=== PATIENT | female | born 1970 | race Caucasian/White ===

== ENCOUNTER 2022-02-21 08:57 | Outpatient (CLI) | payer OTHER, SELFPAY ==
--- OUTSIDE RECORDS SUMMARY | 2022-02-21 08:59 | XMS_ITS | Clinical Summary ---
:1970 Author Organization [place] Address [address] [place] [address]. [place] [address] Care Team Providers Name Role Phone Mae Joseph MD Primary Care Provider [phone] Social History Tobacco Use Types Packs/Day Years Used Date Smoking Tobacco: Never Assessed Sex Assigned at Date Recorded Not on file Plan of Treatment Health Maintenance Due Date Last Done Comments ADVANCE CARE PLANNING 1970 ANNUAL REVIEW OF HM ORDERS 1970 CT COLONOGRAPHY 1970 FIT-DNA (Cologuard) 1970 FIT 1970 FLEX SIG 1970 HEPATITIS B IMMUNIZATION (1 1970 of 3 - 3-dose series) YEARLY PREVENTIVE VISIT 1970 COLONOSCOPY 1980 COLORECTAL CANCER SCREENING 1980 HIV SCREENING 1985 HEPATITIS C SCREENING 1988 PAP 11/28/1991 LIPID 11/28/2015 ZOSTER IMMUNIZATION (1 of 2020 2) COVID-19 Vaccine (3 - 04/27/2021 03/02/2021, 02/02/2021 Booster for Pfizer series) PHQ-2 (once per calendar 05/08/2021 year) INFLUENZA VACCINE (#1) 2022 02/17/2020, 02/13/2019, 02/14/2018, Additional history exists MAMMO SCREENING 03/30/2022 03/30/2021, 02/28/2020, 01/28/2019, Additional history exists DTAP/TDAP/TD IMMUNIZATION 08/31/2023 08/30/2013, 12/10/1999 (2 - Td or Tdap) IPV IMMUNIZATION Aged Out No longer eligi ble based on patient 's age to complete this topic MENINGITIS IMMUNIZATION Aged Out No longe r eligible based on patient 's age to complete this topic Pneumococcal Vaccine: Aged Out No longer eligible Pediatrics (0 to 5 Years) based on patient's age and At-Risk Patients (6 to to co mplete this topic 64 Years) Insurance Payer Benefit Plan / Subscriber ID Effective Phone Address T ype Group Dates PREFERREDONE PREFERREDONE HMO [id number] 2016-Pre [phone] [address] [address] PPO sent [address] [place] [address] Guarantor Name Account Type Relation to Date of Phone Billing Patient Address Gentry Jackson Personal/Family Self 1970 [phone] (Home) [place] [phone] (Work) Care Teams Deck Molder Relationship Specialty Start Date End Date Mae Joseph MD PCP - General apprentice machinist outside 02/26/20 [facility] [address] [place] [address] [place] [phone]
--- OUTSIDE RECORDS SUMMARY | 2022-02-21 08:59 | XMS_ITS | Encounter Summary ---
:1970 Author Organization [place] Address [address] [place] [address]. [place] [address] Care Team Providers Name Role Phone Mae Joseph MD Primary Care Provider Encounter Details Date Type Department Care Team Description 02/28/2020 Travel Social History Tobacco Use Types Packs/Day Years Used Date Smoking Tobacco: Never Assessed Sex Assigned at Date Recorded Not on file COVID-19 Exposure Response Date Recorded In the last month, have you been in contact with No / Unsure 02/28/2020 8:52 AM CDT someone who was confirmed or suspected to have Coronavirus / COVID-19? documented as of this encounter Plan of Treatment Not on filedocumented as of this encounter Visit Diagnoses Not on filedocumented in this encounter Care Teams Ceramics Test Engineer Relationship Specialty Start Date End Date Mae Joseph MD PCP - General granite countertop installer 02/26/20 [facility] [address] [facility] [address] [place] [phone] documented as of this encounter
--- OUTSIDE RECORDS SUMMARY | 2022-02-21 08:59 | XMS_ITS | Encounter Summary ---
:1970 Author Organization [place] Address [address] [place] [address] Care Team Providers Name Role Phone Jenniffer Cannon Primary Care Provider Reason for Referral Diagnostic Imaging Mammo (Routine) - Closed Specialty Diagnoses / Procedures Referred By Contact Refer red To Contact Radiology. Diagnoses Visit for screening mammogram [facility] Procedures MA Screen Bilateral w/Papito [facility] [address] [place] [address] [place] [phone] Fax: Referral ID Status Reason Start Date Expiration Date Visits Requ ested Visits Authorized [id number] Closed 01/16/2019 01/16/2020 1 1 Reason for Visit Diagnostic Imaging Mammo (Routine) - Closed Specialty Diagnoses / Procedures Referred By Contact Refer red To Contact Radiology. Diagnoses Visit for screening mammogram [facility] Procedures MA Screen Bilateral w/Papito [facility] [address] [place] [address] [place] [phone] Fax: Referral ID Status Reason Start Date Expiration Date Visits Requ ested Visits Authorized [id number] Closed 01/16/2019 01/16/2020 1 1 Encounter Details Date Type Department Care Team Description 01/28/2019 Hospital Encounter [facility] Carlos Joseph for screening [facility] Mae Kern MD mammogram Center [facility] [address] [facility], [address] [place] [address] [place] [phone] Social History Tobacco Use Types Packs/Day Years Used Date Smoking Tobacco: Never Assessed Sex Assigned at Date Recorded Not on file documented as of this encounter Plan of Treatment Not on filedocumented as of this encounter Procedures Procedure Name Priority Date/Time Associated Diagnosis Comme nts MA SCREENING Routine 01/28/2019 12:53 PM Visit for screening R esults for this BILATERAL W/ PAPITO CDT mammogram procedure are in the results section. documented in this encounter Results MA Screen Bilateral w/Papito (01/28/2019 12:53 PM CDT) Anatomical Region Laterality Modality Breast Bilateral Mammography Specimen (Source) Anatomical Location Collection Method / Collectio n Time Received Time / Laterality Volume Impressions 01/28/2019 1:07 PM CDT IMPRESSION: BI-RADS CATEGORY: 1 - ??Negative. RECOMMENDED FOLLOW-UP: Annual Mammograph yGita DUNCAN MD Narrative 01/28/2019 1:07 PM CDT SCREENING MAMMOGRAM, BILATERAL, DIGITAL w/CAD and TOMOSYNTHESIS, 01/28/2019 1:06 PM BREAST DENSITY: Heterogeneously dense. CLINICAL INFORMATION: Breast screening. ??Visit for screening mammogram, 01/23/2018, 06/20/2013 FINDINGS: Negative. Stable exam. Screeni ng exam in one year recommended. Procedure Note Marcus Duncan MD - 01/28/2019Formatt ing of this note might be different from the original. SCREENING MAMMOGRAM, BILATERAL, DIGITAL w/CAD and TOMOSYNTHESIS, 01/28/2019 1:06 PM BREAST DENSITY: Heterogeneously dense. CLINICAL INFORMATION: Breast screening. Visit for screening mammogram, 01/23/2018, 06/20/2013 FINDINGS: Negative. Stable exam. Screeni ng exam in one year recommended. IMPRESSION: BI-RADS CATEGORY: 1 - Negati ve. RECOMMENDED FOLLOW-UP: Annual Mammograph y. MARCUS DUNCAN MD Mae Joseph MD IMG MAMMOGRAPHY ORDERABLES documented in this encounter Visit Diagnoses Diagnosis Visit for screening mammogram Other screening mammogram documented in this encounter Care Teams Mechanical Assembly Technician Relationship Specialty Start Date End Date Jenniffer Cannon PCP - General Family Practice 02/23/15 02/25/20 [facility] [address] [place] [place] [address] documented as of this encounter
--- OUTSIDE RECORDS SUMMARY | 2022-02-21 08:59 | XMS_ITS | Encounter Summary ---
:1970 Author Organization [place] Address [address] [place] [address] Care Team Providers Name Role Phone Mae Joseph MD Primary Care Provider Reason for Referral Diagnostic Imaging Mammo (Routine) - Pending Review Specialty Diagnoses / Procedures Referred By Contact Refer red To Contact Diagnoses Visit for screening mammogram Mae Joseph MD Procedures MA Screen Bilateral w/Papito [facility] [address] [place] [address] [place] [phone] Referral ID Status Reason Start Date Expiration Date Visits V isits Requested Authorized [id number] Pending 03/03/2021 03/03/2022 1 1 Review ORATION LAWYER Reason for Visit Diagnostic Imaging Mammo (Routine) - Pending Review Specialty Diagnoses / Procedures Referred By Contact Refer red To Contact Diagnoses Visit for screening mammogram Mae Joseph MD Procedures MA Screen Bilateral w/Papito [facility] [address] [place] [address] [place] [phone] Referral ID Status Reason Start Date Expiration Date Visits V isits Requested Authorized [id number] Pending 03/03/2021 03/03/2022 1 1 Review Encounter Details Date Type Department Care Team Description 03/30/2021 [facility] Mae Kern MD mammogram Center [facility] [address] [facility], [address] [place] [address] [place] [phone] Social History Tobacco Use Types Packs/Day Years Used Date Smoking Tobacco: Never Assessed Sex Assigned at Date Recorded Not on file COVID-19 Exposure Response Date Recorded In the last month, have you been in contact with No / Unsure 03/30/2021 2:10 PM CORPORATION LAWYER someone who was confirmed or suspected to have Coronavirus / COVID-19? documented as of this encounter Plan of Treatment Not on filedocumented as of this encounter Procedures Procedure Name Priority Date/Time Associated Diagnosis Comme nts MA SCREENING Routine 03/30/2021 2:36 PM Visit for screening Re sults for this BILATERAL W/ PAPITO CORPORATION LAWYER mammogram procedure are in the results section. documented in this encounter Results MA Screen Bilateral w/Papito (03/30/2021 2:36 PM CORPORATION LAWYER) Anatomical Region Laterality Modality Breast Bilateral Mammography Specimen (Source) Anatomical Location Collection Method / Collectio n Time Received Time / Laterality Volume Narrative 03/30/2021 3:10 PM CORPORATION LAWYER BILATERAL FULL FIELD DIGITAL SCREENING MAMMOGRAM WITH TOMOSYNTHESIS Performed on: 03/30/21 Compared to: 02/28/2020 and 01/23/2018 Technique: ??This study was evaluated wi th the assistance of Computer-Aided Detection. ??Breast Tomosynthesis was us ed in interpretation. Findings: The breasts are heterogeneousl y dense, which may obscure small masses. ??There is no radiographic evide nce of malignancy. IMPRESSION: ACR BI-RADS Category 1: Nega tive RECOMMENDED FOLLOW-UP: Annual routine sc reening mammogram The results and recommendations of this examination will be communicated to the patient. Mae Joseph MD IMG MAMMOGRAPHY ORDERABLES documented in this encounter Visit Diagnoses Diagnosis Visit for screening mammogram Other screening mammogram documented in this encounter Care Teams Intelligence Officer Basic Relationship Specialty Start Date End Date Mae Joseph MD PCP - General classics professor 02/26/20 [facility] [address] [facility] [address] [place] [address] documented as of this encounter
--- OUTSIDE RECORDS SUMMARY | 2022-02-21 08:59 | XMS_ITS | Encounter Summary ---
:1970 Author Organization [place] Address [address] [place] [address]. [place] [address] Care Team Providers Name Role Phone Jenniffer Cannon Primary Care Provider Reason for Visit (Routine) - Closed Specialty Diagnoses / Procedures Referred By Contact Refer red To Contact Radiology / Radiology. Diagnoses [facility] Procedures MA SCREENING BILATERAL W/ PAPITO [address], [address] [place] [address] Phone: Fax: Referral ID Status Reason Start Date Expiration Date Visits Requ ested Visits Authorized [id number] Closed 02/25/2016 02/24/2017 1 1 Encounter Details Date Type Department Care Team Description 03/14/2016 Hospital Encounter [facility] for screening [facility] Mae Kern MD mammogram Center [facility] [address] [facility], [address] [place] [address] [place] [phone] Social History Tobacco Use Types Packs/Day Years Used Date Smoking Tobacco: Never Assessed Sex Assigned at Date Recorded Not on file documented as of this encounter Plan of Treatment Not on filedocumented as of this encounter Procedures Procedure Name Priority Date/Time Associated Diagnosis Comme nts MA SCREENING Routine 03/14/2016 9:14 AM Visit for screening Re sults for this BILATERAL W/ PAPITO MANAGER FRONT mammogram procedure are in the results section. documented in this encounter Results MA Screen Bilateral w/Papito (03/14/2016 9:14 AM MANAGER FRONT) Anatomical Region Laterality Modality Breast Bilateral Mammography Specimen (Source) Anatomical Location Collection Method / Collectio n Time Received Time / Laterality Volume Impressions 03/14/2016 11:21 AM MANAGER FRONT IMPRESSION: BI-RADS CATEGORY: 1 - ??Negative RECOMMENDED FOLLOW-UP: Annual Mammograph y. Exam results letter mailed to patient. JEREMY RODRIGUEZ MD Narrative 03/14/2016 11:21 AM MANAGER FRONT SCREENING MAMMOGRAM, BILATERAL, DIGITAL w/CAD AND TOMOSYNTHESIS - 03/14/2016 9:14 AM BREAST SYMPTOMS: No current breast compl aints. COMPARISON: ??03/02/2015, 02/29/2008. BREAST DENSITY: Heterogeneously dense. COMMENTS: No findings of suspicion for m alignancy. Procedure Note Jeremy Rodriguez MD - 03/14/2016For matting of this note might be different from the original. SCREENING MAMMOGRAM, BILATERAL, DIGITAL w/CAD AND TOMOSYNTHESIS - 03/14/2016 9:14 AM BREAST SYMPTOMS: No current breast compl aints. COMPARISON: 03/02/2015, 02/29/2008. BREAST DENSITY: Heterogeneously dense. COMMENTS: No findings of suspicion for m alignancy. IMPRESSION: BI-RADS CATEGORY: 1 - Negati ve RECOMMENDED FOLLOW-UP: Annual Mammograph y. Exam results letter mailed to patient. JEREMY RODRIGUEZ MD Mae Joseph MD IMG MAMMOGRAPHY ORDERABLES documented in this encounter Visit Diagnoses Diagnosis Visit for screening mammogram Other screening mammogram documented in this encounter Care Teams General Production Laborer Relationship Specialty Start Date End Date Jenniffer Cannon PCP - General Family Practice 02/23/15 02/25/20 [facility] [address] [place] [address] documented as of this encounter
--- OUTSIDE RECORDS SUMMARY | 2022-02-21 08:59 | XMS_ITS | Encounter Summary ---
:1970 Author Organization [place] Address [address] [place] [address]. [place] [address] Care Team Providers Name Role Phone Mae Joseph MD Primary Care Provider Reason for Referral Diagnostic Imaging Mammo (Routine) - Closed Specialty Diagnoses / Procedures Referred By Contact Refer red To Contact Diagnoses Screening mammogram, encounter for Mae Joseph MD Procedures MA Screen Bilateral w/Papito [facility] [address] [place] [address] [place] [address] Referral ID Status Reason Start Date Expiration Date Visits Requ ested Visits Authorized [id number] Closed 02/04/2020 02/03/2021 1 1 Reason for Visit Diagnostic Imaging Mammo (Routine) - Closed Specialty Diagnoses / Procedures Referred By Contact Refer red To Contact Diagnoses Screening mammogram, encounter for Mae Joseph MD Procedures MA Screen Bilateral w/Papito [facility] [address] [place] [place] [address] Referral ID Status Reason Start Date Expiration Date Visits Requ ested Visits Authorized [id number] Closed 02/04/2020 02/03/2021 1 1 Encounter Details Date Type Department Care Team Description 02/28/2020 Hospital Encounter [facility] M[facility]o Joseph mammogram, [facility] Mae Kern MD encounter for [facility] [address] [facility], [address] [place] [address] [place] [phone] Social History Tobacco Use Types Packs/Day [...] Associated Diagnosis Comme nts MA SCREENING Routine 02/28/2020 9:10 AM Screening mammogram, R esults for this BILATERAL W/ PAPITO CDT encounter for procedure are in the results section. documented in this encounter Results MA Screen Bilateral w/Papito (02/28/2020 9:10 AM CDT) Anatomical Region Laterality Modality Breast Bilateral Mammography Specimen (Source) Anatomical Location Collection Method / Collectio n Time Received Time / Laterality Volume Impressions 02/28/2020 12:21 PM CDT IMPRESSION: BI-RADS CATEGORY: 1 - ??NEGATIVE. RECOMMENDED FOLLOW-UP: Annual Mammograph y. The patient will be notified of the resu lts. PEPE ABDALLA MD Narrative 02/28/2020 12:21 PM CDT Examination: Bilateral digital screening mammography with computer aided detection including digital breast tomosynthesis, 02/28/2020 9:10 AM. Comparison: 01/28/2019, 06/20/2013 History: No current breast concerns. BREAST DENSITY: Heterogeneously dense. COMMENTS: ??No suspicious finding. Procedure Note Pepe Abdalla MD - 02/28/2020 Examination: Bilateral digital screening mammography with computer aided detection including digital breast tomosynthesis, 02/28/2020 9:10 AM. Comparison: 01/28/2019, 06/20/2013 History: No current breast concerns. BREAST DENSITY: Heterogeneously dense. COMMENTS: No suspicious finding. IMPRESSION: BI-RADS CATEGORY: 1 - NEGATI VE. RECOMMENDED FOLLOW-UP: Annual Mammograph y. The patient will be notified of the resu lts. PEPE ABDALLA MD Mae Joseph MD IMG MAMMOGRAPHY ORDERABLES documented in this encounter Visit Diagnoses Diagnosis Screening mammogram, encounter for documented in this encounter Care Teams Outsole Skiver Relationship Specialty Start Date End Date Mae Joseph MD PCP - General door frame assembler machine 02/26/20 [facility] [address] [place] [phone] documented as of this encounter
--- OUTSIDE RECORDS SUMMARY | 2022-02-21 08:59 | XMS_ITS | Encounter Summary ---
:1970 Author Organization [place] Address [address] [place] [address] Care Team Providers Name Role Phone Mae Joseph MD Primary Care Provider [phone] Encounter Details Date Type Department Care Team Description 03/30/2021 Travel Social History Tobacco Use Types Packs/Day Years Used Date Smoking Tobacco: Never Assessed Sex Assigned at Date Recorded Not on file COVID-19 Exposure Response Date Recorded In the last month, have you been in contact with No / Unsure 03/30/2021 2:10 PM MANAGING PRINCIPAL someone who was confirmed or suspected to have Coronavirus / COVID-19? documented as of this encounter Plan of Treatment Not on filedocumented as of this encounter Visit Diagnoses Not on filedocumented in this encounter Care Teams Hall Worker Relationship Specialty Start Date End Date Mae Joseph MD PCP - General fermentation operator 02/26/20 [facility] [address] [place] [phone] documented as of this encounter
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
--- OUTSIDE RECORDS SUMMARY | 2022-02-21 09:00 | XMS_ITS | Encounter Summary ---
:1970 Author Organization [place] Address [address] [place] [address]. [place] [address] Care Team Providers Name Role Phone Unavailable Primary Care Provider Unavailable Encounter Details Date Type Department Care Team Description 11/17/2003 Operative Report [place] OB Transcripti on Mae Marr ([employer]) [address] [facility] [place] [address] [facility] [phone] CONSULTS [address] [place] [address] (Wo rk) Social History Tobacco Use Types Packs/Day Years Used Date Smoking Tobacco: Never Assessed Sex Assigned at Date Recorded Not on file documented as of this encounter Miscellaneous Notes Op Note - Mae Marr - 11/17/2003 12:00 AM CDT : 70 1st ASS'T: 2nd ASS'T: PRE-OPERATIVE DIAGNOSIS: 1. at 37 weeks' gestation. 2. Previous section times three. 3. Placenta previa. 4. lung maturity. 5. Desires permanent sterilization. POST-OPERATIVE DIAGNOSIS: 1. at 37 weeks' gestation. 2. Previous section times three. 3. Placenta previa. 4. lung maturity. 5.Desires permanent sterilization. OPERATION: Repeat low segment transverse section; bilateral Brien tubal ligation. ANESTHESIA: Spinal. ESTIMATED BLOOD LOSS: 700 cc. COMPLICATIONS: None. DRAINS: Garcia catheter. PREOP STATUS: Elba Jesus is a 32-year-old 4, para 3, EDC 12/09/03, who is admitted for repeat due to previous C- section times three and posterior placenta previa. This was complicated by the placenta previa. She had one episode of bleeding at 18 weeks' gestation and also spotting at 23 weeks' gestation. She had no further bleeding. Serial ultrasounds showed that the placenta previa did not resolve. She also had initial antibody screen for anti-M 1:4 titer. Her was M positive.She had a consultation and serial titers were followed, but dropped to 0 and then increased only to 1:2. Serial ultrasound showed some shlea-slv-czxnihqhdfb-age growth and also some borderline oligohydramnios beginning at approximately 32 weeks' gestation. She had weekly and then semi-weekly biophysical profiles which remained normal. Amniocentesis was performed on 11/14/03, for lung maturity in anticipation of an early because of the placenta previa. The lungs are very mature with LF 4.7, DSL 3200 and PG positive. She was negative for group B strep. Past medical history is also remarkable for a bicornuate uterus, and history of excision of a uterine septum and vaginal septum. This was in the right horn. She expressed desire for permanent sterilization and this was discussed throughout the . Risks and benefits were discussed. OPERATIVE FINDINGS: A 5 pound 11 ounce male from the vertex presentation, Apgars 8 at 1 minute and 9 at 5 minutes. There was a posterior placenta previa. The baby was in the right horn with a rudimentary left horn. The tubes and ovaries were normal. OPERATIVE PROCEDURE: Patient was taken to the operating room and spinal anesthetic given. She was prepped and draped in the left lateral tilt position. After assuring adequate anesthesia, Pfannenstiel skin incision was made through the previous incision and carried down to the fascia. There was significant abdominal wall scarring. The fascia was sharply taken off the rectus muscles with the cautery superiorly and inferiorly. Rectus muscles were already divided in the midline and a window of peritoneum was showing. This was elevated and entered. The incision was extended carefully superiorly and inferiorly. There were omental adhesions to the anterior abdominal wall above the area of our incision. The bladder was fairly adherent to the lower uterine segment. Flap was taken down sharply and bluntly, and there was no evidence of any trauma to the bladder. There was a very large vein approximately 7 mm in width on the surface of the uterus in the right lower uterine segment which was not the uterine vessels. Lower uterine segment was incised transversely, the endometrial cavity entered bluntly. The incision was extended bilaterally with bandage scissors, staying superior to this large vein. Membranes were ruptured with clear fluid. The vertex was delivered through the incision and the mouth and nares suctioned. Two nuchal cords were reduced over the head and the rest of the baby delivered without difficulty. The cord was doubly clamped and cut, the infant handed to the nurse in attendance. Placenta was palpated and was indeed a posterior previa. It was removed intact and the endometrial cavity wiped free of membrane and clot. The uterus firmed up nicely. The cut edges of the uterus were then reapproximated with running locked suture of 0 Vicryl. Due to the proximity of the bladder to the incision being approximately within 1.5 to 2 cm below the incision, I did not want to do a second layer and draw that bladder to the incision. Two more mraerd-oy-rclbs sutures were placed for hemostasis. The rest of the incision was hemostatic. The pelvis and abdomen were then irrigated. Incision and bladder flap again inspected and were hemostatic. The tubes and ovaries were inspected and were normal. It was confirmed with the patient and her that she wanted tubal ligation. The right tube was identified with the fimbriated end and the segment midportion elevated and ligated twice with 0 plain suture and the knuckle of tube excised. On the left, the tube was also identified with the fimbriated end, a knuckle of tube elevated, ligated twice with 0 plain suture, and the knuckle excised. The uterine incision was again inspected. The peritoneum was closed with running suture of 3-0 Vicryl. Fascia was closed with running suture of 0 Vicryl from each end to the midline. Subcutaneous tissue was irrigated and lightly cauterized. Skin was closed with tania. Patient tolerated the procedure well and went to recovery in good condition. All sponge and needle counts were correct. [id number] MAE MARR MD MT: Document: [id number] [place], [place] Name: ELBA JESUS LCN: OB DSC: 11/17/2003 [place], [place] Name: MR#: : Procedure Date: ELBA JESUS [id number] 1970 11/17/2003 Doctor: MAE MARR MD OPERATIVE REPORT Page 1 of 3 documented in this encounter Plan of Treatment Not on filedocumented as of this encounter Visit Diagnoses Not on filedocumented in this encounter
--- OUTSIDE RECORDS SUMMARY | 2022-02-21 09:00 | XMS_ITS | Encounter Summary ---
:1970 Author Organization [place] Address [address] [place] [address]. [place] [address] Care Team Providers Name Role Phone Jenniffer Cannon Primary Care Provider Reason for Visit (Routine) - Closed Specialty Diagnoses / Procedures Referred By Contact Refer red To Contact Radiology / Radiology. Diagnoses prev epic papito info given Breast Center Procedures MA SCREENING DIGITAL BILATERAL [address] [facility], [address] [place] [address] Phone: Fax: Referral ID Status Reason Start Date Expiration Date Visits Requ ested Visits Authorized [id number] Closed 02/25/2015 02/25/2016 1 1 Encounter Details Date Type Department Care Team Description 03/02/2015 Hospital Encounter [facility] for screening [place] [facility] Mae [place] MD mammogram Center [facility] [address] [facility] [address] [address] [place] [phone] [address] Social History Tobacco Use Types Packs/Day Years Used Date Smoking Tobacco: Never Assessed Sex Assigned at Date Recorded Not on file documented as of this encounter Plan of Treatment Not on filedocumented as of this encounter Procedures Procedure Name Priority Date/Time Associated Diagnosis Comme nts MA SCREENING Routine 03/02/2015 2:53 PM Visit for screening Re sults for this BILATERAL W/ PAPITO CDT mammogram procedure are in the results section. documented in this encounter Results MA Screen Bilateral w/Papito (03/02/2015 2:53 PM CDT) Anatomical Region Laterality Modality Breast Bilateral Mammography Specimen (Source) Anatomical Location Collection Method / Collectio n Time Received Time / Laterality Volume Impressions 03/02/2015 3:05 PM CDT IMPRESSION: BI-RADS CATEGORY: 1 - ??Negative. RECOMMENDED FOLLOW-UP: Annual Mammograph y. ?? MARCUS DUNCAN MD Narrative 03/02/2015 3:05 PM CDT SCREENING MAMMOGRAM, BILATERAL, DIGITAL w/CAD and TOMOSYNTHESIS, 03/02/2015 3:04 PM BREAST DENSITY: Heterogeneously dense. CLINICAL INFORMATION: ??Encounter for sc reening mammogram for malignant neoplasm of breast, 06/20/2013, 02/29/20 08 FINDINGS: Negative. Screening exam in on e year recommended. Procedure Note Marcus Duncan MD - 03/02/2015Formatt ing of this note might be different from the original. SCREENING MAMMOGRAM, BILATERAL, DIGITAL w/CAD and TOMOSYNTHESIS, 03/02/2015 3:04 PM BREAST DENSITY: Heterogeneously dense. CLINICAL INFORMATION: Encounter for scre ening mammogram for malignant neoplasm of breast, 06/20/2013, 02/29/20 08 FINDINGS: Negative. Screening exam in on e year recommended. IMPRESSION IMPRESSION: BI-RADS CATEGORY: 1 - Negati ve. RECOMMENDED FOLLOW-UP: Annual Mammograph y. MARCUS DUNCAN MD Mae Joseph MD IMG MAMMOGRAPHY ORDERABLES documented in this encounter Visit Diagnoses Diagnosis Visit for screening mammogram Other screening mammogram documented in this encounter Care Teams [employer] Crew Chief Relationship Specialty Start Date End Date Jenniffer Cannon PCP - General Family Practice 02/23/15 02/25/20 [facility] [address] [place] [address] documented as of this encounter
--- OUTSIDE RECORDS SUMMARY | 2022-02-21 09:00 | XMS_ITS | Encounter Summary ---
:1970 Author Organization [place] Address [address] [place] [address]. [place] [address] Care Team Providers Name Role Phone Unavailable Primary Care Provider Unavailable Encounter Details Date Type Department Care Team Description 12/10/2003 Discharge Summary [place] OB Transcripti on Mae Marr (Health Record Technician) [address] [facility] [place] [address] [facility] OBGYN [phone] CONSULTS [address] [place] [address] (Wo rk) Social History Tobacco Use Types Packs/Day Years Used Date Smoking Tobacco: Never Assessed Sex Assigned at Date Recorded Not on file documented as of this encounter Discharge Summaries Mae Marr - 12/04/2003 12:00 AM CDT : 70 Patient is a 32-year-old 4, PARA 3, EDC 12/09/03 admitted for repeat C section, did a previous times three and posterior placenta previa. Amniocentesis on 11/14/03 showed lung maturity with LS 4.7, DSL 3200 and PG positive. She is group B strep negative. On 11/17/03 she underwent repeat low segment transverse and bilateral [place] tubal ligation under spinal anesthesia without complication. Findings were a 5 pound, 11 ounce male from the vertex presentation. Apgars 8 at one minute, 9 at five minutes. The tubes and ovaries were normal. There was posterior placenta previa. She has a history of bicornuate uterus and the baby was in the right horn with a rudimentary left horn. Postoperatively, she initially was unable to empty her bladder and Garcia catheter was replaced. Garcia was removed on postoperative day 3 without difficulty. She was discharged home on post-op day #4 with prescription for pain medication and will return in six weeks for follow-up. [id number] MAE MARR MD MT: Document: [id number] [place], [place] Name: ELBA JESUS Please refer to the Nursing Discharge Information Sheet for more detailed information regarding diet, physical actvity limitations, medications and other pertinent instructions given to this patient upon discharge. DISCHARGE SUMMARY Page 2 of 1 LCN: OB DSC: 11/21/2003 [place], [place] Name: MR#: : Admit Date: Discharge Date: ELBA JESUS -51 1970 11/17/2003 11/21/2003 Doctor: MAE MARR MD Please refer to the Nursing Discharge Information Sheet for more detailed information regarding diet, physical activity limitations, medications and other pertinent instructions given to this patient upon discharge. DISCHARGE SUMMARY Page 1 of 1 documented in this encounter Plan of Treatment Not on filedocumented as of this encounter Visit Diagnoses Not on filedocumented in this encounter
--- OUTSIDE RECORDS SUMMARY | 2022-02-21 09:00 | XMS_ITS | Encounter Summary ---
:1970 Author Organization [facility] Address [address] [place] [address]. [place] [address] Care Team Providers Name Role Phone Unavailable Primary Care Provider Unavailable Encounter Details Date Type Department Care Team Description 02/29/2008 Results Only [facility] [place] Results [facility] CONSULTS [address] [place] [phone] (Wo rk) Social History Tobacco Use Types Packs/Day Years Used Date Smoking Tobacco: Never Assessed Sex Assigned at Date Recorded Not on file documented as of this encounter Plan of Treatment Not on filedocumented as of this encounter Procedures Procedure Name Priority Date/Time Associated Diagnosis Comme nts MAMMO SCREEN Routine 02/29/2008 11:57 AM Resul ts for this BILATATERAL, INCL CDT procedure are in CAD WHEN PERF the results section. documented in this encounter Results SCREENING MAMMOGRAPHY DIGITAL (BILAT) (02/29/2008 11:57 AM CDT) Anatomical Region Laterality Modality Other Specimen (Source) Anatomical Collection Method Collection Time Re ceived Time Location / / Volume Laterality 02/29/2008 11:57 AM CDT Impressions 02/29/2008 1:12 PM CDT SCREENING MAMMOGRAM, BILATERAL, DIGITAL w/ CAD BREAST SYMPTOMS/COMPARISON:Routine BREAST PARENCHYMAL PATTERN: Heterogeneou sly dense. COMMENTS: Negative. IMPRESSION: BI-RADS 1, NEGATIVE. Mae Joseph MD SPECIAL IMAGING STUDIES documented in this encounter Visit Diagnoses Not on filedocumented in this encounter
--- NOTE | 2022-02-21 09:15 | MR_ITS ---
[address] [address] Phone:?[phone] Fax:?[phone] Referring Physician Information: Claudette Hogan [address] [facility] [address] Phone:?[phone] Fax:?[phone] Patient:Mahad Jackson D.O.B:?1970 Sex:?Female Phone:?[phone] [facility] MRN:?[id number] Exam Date:?02/21/2022 ? EXAM: MRI of the LEFT KNEE, without contrast CLINICAL INFORMATION: Female, 50 years old, with left knee pain. INDICATION: Evaluate for lateral meniscal tear. PRIOR SURGERY: None reported. PLAIN FILMS: None available. COMPARISONS: No prior MRIs available. TECHNICAL INFORMATION: Using a 1.5T MR scanner and a localizing surface coil: sagittals: PD, PDFS coronals: PD, T2FS axials: PD, PDFS SEDATION: None CONTRAST: None FINDINGS: Knee joint: Effusion: Moderate left knee effusion. Popliteal cyst: Small, inferiorly leaking popliteal (Naik's) cyst. Loose bodies: None. Subcutaneous and extra-articular soft tissues: Mild anterior subcutaneous soft tissue swelling. Ligaments: ACL: Full-thickness disruption of the ACL (sagittal PDFS series 6 images 17 & 18). PCL: Intact PCL, without acute or chronic injury. MCL: Intact MCL superficial and deep layers, without injury. LCL: Intact LCL, without injury. Posterolateral corner: No posterolateral corner soft tissue injury. Popliteus, biceps femoris, iliotibial band, popliteofibular ligament and lateral gastrocnemius are intact. Posteromedial corner: No posteromedial corner soft tissue injury. Semimembranosus, pes anserine tendons and posterior oblique ligament are without injury, tendinopathy or bursitis. Extensor mechanism: Patellar tendon: Mild proximal patellar tendinopathy, without tear (sagittal PDFS series 6 images 16-20). Quadriceps tendon: Intact, without tendinopathy. Retinacula: Medial and lateral retinacula are intact. Fat pads: Unremarkable infrapatellar Hoffa's, quadriceps and prefemoral fat pads. Medial compartment: Medial meniscus: Peripheral vertical undersurface tearing of the medial meniscal posterior horn measures 1.7 cm (sagittal PDFS series 6 images 9-14). Meniscal extrusion measures 3 mm. No parameniscal cyst. Medial femoral condyle: No chondromalacia or osteochondral abnormality. Medial tibial plateau: No chondromalacia or osteochondral abnormality. Lateral compartment: Lateral meniscus: No articular surface, meniscosynovial junction or root tear. No displacement, extrusion or parameniscal cyst. Lateral femoral condyle: No chondromalacia or osteochondral abnormality. Lateral tibial plateau: No chondromalacia or osteochondral abnormality. 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 Trochlea: Broad-based grade II chondromalacia of the medial facet and central sulcus of the trochlea, with minimal marginal osteophytosis. Proximal tibiofibular joint: Unremarkable, without evidence of ligament sprain injury, joint effusion or adjacent marrow edema. Bones: No stress/occult fractures or other marrow edema/pathology. IMPRESSION: 1. Full-thickness disruption of the ACL. 2. Peripheral vertical undersurface tearing of the medial meniscal posterior horn measuring 1.7 cm, with 3 mm of meniscal extrusion. 3. Mild chondromalacia of the patellofemoral compartment, with focal chondral fissuring of the medial patellar facet, without reactive osseous changes. 4. Mild proximal patellar tendinopathy, without tear. 5. Moderate knee joint effusion with a small, inferiorly leaking Naik cyst. 6. No PCL, MCL, or LCL sprain/tear. No lateral meniscal tear. 7. No osteochondral abnormality medial or lateral compartment. BC Electronically signed on 02/21/2022 12:54:00 PM by Ravinder Lockwood M.D.
== END 2022-02-21 08:58 | disposition home or self-care (01) ==
LOC: MRI 08:58
PROVIDERS: PCP Family Medicine; Visit Provider Physician Assistant Surgical
DX: M25.562 Pain in left knee (principal); M94.262 Chondromalacia, left knee; M23.222 Derangement of posterior horn of medial meniscus due to old tear or injury, left knee; M25.462 Effusion, left knee
CPT/HCPCS: 73721

== ENCOUNTER 2022-05-12 08:32 | Outpatient (CLI) | payer OTHER, SELFPAY ==
[2022-05-12 15:13] LABS: Chloride* 109 mmol/L (96-114); Potassium* 4.5 mmol/L (3.6-5.1); Sodium* 138 mmol/L (135-149)
[2022-05-12 15:15] LABS: Cholesterol* 213 mg/dL (90-199); Creatinine* 0.7 mg/dL (0.5-1.5); Estimated Glomerular Filt Rate 105 ml/min
[2022-05-12 15:16] LABS: Blood Urea Nitrogen* 11 mg/dL (7-30); Calcium* 9.2 mg/dL (8.4-10.6); Carbon Dioxide* 22 mmol/L (20-32); Glucose* 92 mg/dL (60-115); Triglycerides* 71 mg/dL (40-149)
[2022-05-12 15:17] LABS: HDL Cholesterol* 93 mg/dL (>=50); LDL Cholesterol Calculated 106 mg/dL (<100)
== END 2022-05-12 08:33 | disposition home or self-care (01) ==
PROVIDERS: PCP Family Medicine; Visit Provider Nurse Practitioner Family
DX: Z01.818 Encounter for other preprocedural examination (principal); R53.83 Other fatigue; Z13.6 Encounter for screening for cardiovascular disorders
CPT/HCPCS: 80048; 80061; 84443